=== PATIENT | female | born 1950 | race Caucasian/White ===

== ENCOUNTER 2021-09-16 11:05 | Emergency (ER) | payer MEDICARE ==
[~2021-09-16 11:05] MED LIST: MEDROL4 MG PO
[2021-09-16 13:54] LABS: RED BLOOD COUNT 4.87 M/UL (4.00-5.10)
[2021-09-16] MEDS ORDERED: HYDROCODON-ACE1 EAC4 PO (14:25)
[2021-09-16 15:51] LABS: BUN/CREATININE RATIO 24 (0-10)
[2021-09-17] MEDS ORDERED: HYDROCODON-ACE1 EAC4 PO (10:16)
[2021-09-17] MEDS ORDERED: EFFEXOR XR75 MG PO (10:17)
[2021-09-17] MEDS ORDERED: KLONOPIN0.5 MG PO (10:17)
[2021-09-17] MEDS ORDERED: ZOCOR 40 MG TAB40 MG PO (10:17)
[2021-09-17] MEDS ORDERED: METOPROLOL TART25 MG PO (10:18)
[2021-09-17] MEDS ORDERED: SYNTHROID50 MCG PO (10:18)
[2021-09-17] MEDS ORDERED: METFORMIN HCL500 M2 PO (10:18)
[2021-09-17] MEDS ORDERED: OXYBUTYNIN CHLOR5 MG PO (10:18)
[2021-09-17] MEDS ORDERED: ASPIRIN EC81 MG PO (10:19)
== END 2021-09-16 17:00 | disposition home or self-care (01) ==
LOC: ER1 11:05
PROVIDERS: Emergency Medicine
DX: S82.432A Displaced oblique fracture of shaft of left fibula, initial encounter for closed fracture (principal); E11.9 Type 2 diabetes mellitus without complications; Z90.710 Acquired absence of both cervix and uterus; W01.0XXA Fall on same level from slipping, tripping and stumbling without subsequent striking against object, initial encounter
CPT/HCPCS: 27788; 73590; 73600; 73610; 73630; 80053; 85025; 99152; 99153; 99283; J2270; J2405; J2704

== ENCOUNTER 2021-09-16 21:54 | Inpatient (IN) | payer MEDICARE ==
[~2021-09-16] VITALS: Ht 167.6 cm; Wt 97.1 kg
[~2021-09-16 21:54] MED LIST changes: +HYDROCODON-ACE1 EAC4 PO
[2021-09-16 23:32] LABS: HEMOGLOBIN 11.8 gm/dl (12.3-15.3); RED BLOOD COUNT 4.21 M/UL (4.00-5.10)
[2021-09-17 05:38] LABS: HEMOGLOBIN 11.5 gm/dl (12.3-15.3); RED BLOOD COUNT 4.02 M/UL (4.00-5.10); WHITE BLOOD COUNT 9.4 K/UL (4.5-11.0)
[2021-09-17 05:47] LABS: BUN/CREATININE RATIO 23 (0-10)
[2021-09-17] MEDS ORDERED: HYDROCODON-ACE1 EAC4 PO (10:16)
[2021-09-17] MEDS ORDERED: ZOCOR 40 MG TAB40 MG PO (10:17)
[2021-09-17] MEDS ORDERED: EFFEXOR XR75 MG PO (10:17)
[2021-09-17] MEDS ORDERED: KLONOPIN0.5 MG PO (10:17)
[2021-09-17] MEDS ORDERED: OXYBUTYNIN CHLOR5 MG PO (10:18)
[2021-09-17] MEDS ORDERED: SYNTHROID50 MCG PO (10:18)
[2021-09-17] MEDS ORDERED: METFORMIN HCL500 M2 PO (10:18)
[2021-09-17] MEDS ORDERED: METOPROLOL TART25 MG PO (10:18)
[2021-09-17] MEDS ORDERED: ASPIRIN EC81 MG PO (10:19)
--- NOTE | 2021-09-18 01:02 | NUR ---
PATIENT WORE BIPAP FOR APROX 45 MINS FOR THE FIRST TIME WHEN GOING TO SLEEP. PATIENT TOOK BIPAP OFF AND REFUSED TO PUT IT BACK ON. ABG OBTAINED PER PROTOCOL AFTER ALMOST ONE HOUR OF WEARING IT. PATIENT ENCOURAGED TO WEAR AND EXPLAINED IMPORTANCE BUT REFUSED ANYWAY.
[2021-09-18 03:20] LABS: HEMOGLOBIN 10.4 gm/dl (12.3-15.3); RED BLOOD COUNT 3.72 M/UL (4.00-5.10); WHITE BLOOD COUNT 8.2 K/UL (4.5-11.0)
[2021-09-18 04:01] LABS: BUN/CREATININE RATIO 21 (0-10)
--- NOTE | 2021-09-18 09:46 | NUR ---
PTS O2 DROPPED TO 87% ON ROOM AIR.
== END 2021-09-18 13:49 | disposition home or self-care (01) | DRG 562 ==
LOC: ER1 21:54 → CDU 09-17 04:01 → PROG CARE 09-17 04:01
PROVIDERS: Internal Medicine; Student in an Organized Health Care Education/Training Program; ADMIT Internal Medicine
PROC: 2W3MX1Z Immobilization of Left Lower Extremity using Splint (ICD-10-PCS; 2021-09-16)
PROC: 0QSKXZZ Reposition Left Fibula, External Approach (ICD-10-PCS; 2021-09-16)
PROC: 5A09357 Assistance with Respiratory Ventilation, Less than 24 Consecutive Hours, Continuous Positive Airway Pressure (ICD-10-PCS; principal; 2021-09-17)
DX: S82.892A Other fracture of left lower leg, initial encounter for closed fracture (principal); J96.01 Acute respiratory failure with hypoxia; J96.02 Acute respiratory failure with hypercapnia; Z20.822 Contact with and (suspected) exposure to COVID-19; E66.2 Morbid (severe) obesity with alveolar hypoventilation; J98.11 Atelectasis; E78.5 Hyperlipidemia, unspecified; R29.6 Repeated falls; D64.9 Anemia, unspecified; W18.30XA Fall on same level, unspecified, initial encounter; I10 Essential (primary) hypertension; E11.9 Type 2 diabetes mellitus without complications; Z79.01 Long term (current) use of anticoagulants; Z79.82 Long term (current) use of aspirin; Z79.4 Long term (current) use of insulin; Y92.091 Bathroom in other non-institutional residence as the place of occurrence of the external cause; Z90.710 Acquired absence of both cervix and uterus; Z98.890 Other specified postprocedural states; Z88.8 Allergy status to other drugs, medicaments and biological substances; Z88.6 Allergy status to analgesic agent; Z68.34 Body mass index [BMI] 34.0-34.9, adult
CPT/HCPCS: 36600; 71045; 80048; 80053; 82550; 82553; 82803; 82962; 83036; 83735; 83880; 84484; 85025; 85027; 93005; 94660; 94760; 96374; 97162; 97530; 99285; J1644; J1650; J2405; Q9967

== ENCOUNTER → 2021-10-07 | Day surgery (SDC) | payer MEDICARE, OTHER ==
[~2021-10-07] MED LIST changes: +ASPIR-TRIN325 MG PO; +ASPIRIN EC81 MG PO; +CEPHALEXIN500 MG PO; +EFFEXOR XR75 MG PO; +HYDROCODON-ACE1 EAC6 PO; +KLONOPIN0.5 MG PO; +METFORMIN HCL500 M2 PO; +METOPROLOL TART25 MG PO; +OXYBUTYNIN CHLOR5 MG PO; +SYNTHROID50 MCG PO; +ZOCOR 40 MG TAB40 MG PO
[2021-10-07 08:49] LABS: HEMOGLOBIN 11.6 gm/dl (12.3-15.3); RED BLOOD COUNT 4.11 M/UL (4.00-5.10); WHITE BLOOD COUNT 7.5 K/UL (4.5-11.0)
[2021-10-07 09:21] LABS: BUN/CREATININE RATIO 22 (0-10)
== END | disposition home or self-care (01) ==
LOC: OR 07:43
PROVIDERS: Orthopaedic Surgery
DX: S82.852A Displaced trimalleolar fracture of left lower leg, initial encounter for closed fracture (principal); S93.432A Sprain of tibiofibular ligament of left ankle, initial encounter; G89.18 Other acute postprocedural pain; I10 Essential (primary) hypertension; E78.5 Hyperlipidemia, unspecified; E11.9 Type 2 diabetes mellitus without complications; E03.9 Hypothyroidism, unspecified; G47.33 Obstructive sleep apnea (adult) (pediatric); Z99.81 Dependence on supplemental oxygen; F41.9 Anxiety disorder, unspecified; F32.A Depression, unspecified; Z79.82 Long term (current) use of aspirin; Z79.84 Long term (current) use of oral hypoglycemic drugs; Z79.899 Other long term (current) drug therapy; Z88.5 Allergy status to narcotic agent; Z88.8 Allergy status to other drugs, medicaments and biological substances; X58.XXXA Exposure to other specified factors, initial encounter
CPT/HCPCS: 36415; 71045; 73610; 76000; 80048; 82962; 85025; 93005; C1713; J0690; J1100; J2001; J2250; J2370; J2405; J2704; J2795; J3010

== ENCOUNTER → 2021-10-18 | Outpatient (CLI) | payer MEDICARE | LOC: HEART 5 16:04 | DX: R09.02 Hypoxemia (principal) | CPT/HCPCS: 94060; 94729 ==